=== PATIENT | female | born 1985 | race Caucasian/White ===

== ENCOUNTER 2017-06-30 08:47 | Emergency (ER) | payer OTHER, SELFPAY ==
[2017-06-30 08:48] VITALS: BP 119/81; PULSE 91; RESP 18; TEMP 36.7; O2SAT 100; BMI 28.3
--- NOTE | 2017-06-30 09:00 | EKG12_ITS ---
Test Reason : ABNORMAL LABS Blood Pressure : / mmHG Vent. Rate : 076 BPM Atrial Rate : 076 BPM P-R Int : 136 ms QRS Dur : 082 ms QT Int : 388 ms P-R-T Axes : 042 068 041 degrees QTc Int : 436 ms Sinus rhythm with marked sinus arrhythmia Otherwise normal ECG Confirmed by JOEY LOREDO, BON ([id number]), videotape editor JAIRO GOMEZ ([id number] on 07/02/2017 1:20:16 PM Referred By: Dayna Wolfe Confirmed By:BON COOK MD
--- NOTE | 2017-06-30 09:00 | RAD_ITS ---
STUDY: X-RAY CHEST REASON FOR EXAM: Female, 32 years old. Pain. Shortness of breath TECHNIQUE: PA and lateral views of the chest. COMPARISON: None. FINDINGS: The lungs are clear and expanded. There is no demonstrated pleural abnormality. Normal size heart. Normal mediastinum and mike. Normal visualized pulmonary arteries. Normal visualized aortic arch and descending thoracic aorta. There is a dextroscoliosis of the thoracic spine. Normal visualized ribs, clavicles, and shoulders. There is no demonstrated abnormality of the visualized soft tissue structures of the upper abdomen. RAD/Chest PA and Lateral IMPRESSION: Lungs are clear. Scoliosis. Electronically Signed: Quinn Scott MD at 10:06 EST , Service support ,
[2017-06-30] MEDS: Ondansetron 4 MG/2 ML Vial IV (09:12)
[2017-06-30 09:13] VITALS: BP 114/77; PULSE 85; RESP 14; O2SAT 99
[2017-06-30] MEDS: Ketorolac 30 MG/ML Syringe IV (09:13)
[2017-06-30 09:19] LABS: Absolute Lymphocyte Count 1.92 X10^3/ul (0.83-4.51); Absolute Neutrophil Count 4.8 X10^3/uL (2.0-7.7); Basophil# 0.04 X10^3/uL; Basophil% 0.5 % (0-1); Eosinophil# 0.18 X10^3/uL; Eosinophils% 2.4 % (0-5); Hematocrit 39.6 % (37-47); Hemoglobin 13.7 g/dl (12.0-15.0); Lymphocyte # 1.92 X10^3/ul (4.0); Lymphocyte % 25.8 % (19-41); Mean Corp Hgb Conc 34.6 g/gl (32-36); Mean Corpuscular Hgb 31.7 pg (27.0-32.0); Mean Corpuscular Volume 91.7 fL (81-99); Mean Platelet Vol. 10.4 fl (6.2-12.0); Monocyte# 0.54 X10^3/uL; Monocyte% 7.3 % (0-10); Neutrophil # 4.75 X10^3/uL (2.7-7.7); Neutrophil % 63.9 % (47-70); Platelet Count 252 K/mm3 (150-450); RBC Distribution Width SD 39.8 fl (35.1-43.9); Red Blood Count 4.32 M/mm3 (4.2-5.4); White Blood Count 7.4 K/mm3 (4.4-11.0)
[2017-06-30 09:23] LABS: POSITIVE COUNT NO; POSITIVE DIFFERENTIAL NO; POSITIVE MORPHOLOGY NO
[2017-06-30 09:36] LABS: Anion Gap 8 (5-15); BUN 16 mg/dL (7-18); BUN/Creat Ratio 13.8 RATIO (10-20); Chloride 106 mmol/L (98-107); Creatinine, Serum 1.16 mg/dL (0.55-1.02); EST Glomerular Filtration Rate 57 mL/min (>60); Est Glom Filt Rate - Afr Amer 69 mL/min (>60); Estimated Creatinine Clearance 56.53 ml/min; Glucose 81 mg/dL (74-106); Sodium Level 140 mmol/L (136-145)
[2017-06-30 09:49] LABS: D-Dimer Quantitative (DVT/PE) 0.41 FEU/ug/m (0.27-0.49)
--- NOTE | 2017-06-30 10:14 | ED.VISSUMM ---
- ER Visit Summary Date of Service: 06/30/17 Chief Complaint: [Chest pain and shortness of breath] History of Present Illness: The patient is a 32 F [presents to the emergency department with complaint of discomfort in her chest that started yesterday morning. States she woke up with the discomfort that is retrosternal. Patient describes it as a sharp to burning sensation. Patient states the discomfort is worse with breathing. Patient denies any trauma. This morning patient had nausea and dry heaves while at work and was brought to the emergency department for evaluation. Patient denies any fever although she states she subjectively felt hot and flushed last night. Patient denies any abdominal pain. She denies urinary symptoms. 2 of her young children at home with low-grade fevers, runny nose, and cough. Patient denies any trauma to her chest. She denies lifting or straining. Patient did have a uterine ablation recently. She denies recent travel or long period of immobilization.] Patient's pain is not worse with lying flat. Physical Examination: [HEENT-PERRLA, EOMI. Cranial nerves II through XII grossly intact. TMs clear. Mucous membranes moist. No adenopathy. Cardiovascular-regular rate and rhythm without murmur or ectopy Lungs-clear to auscultation, chest wall stable without crepitus or subcu emphysema. Unable to reproduce patient's chest pain with palpation. Abdomen-normoactive bowel sounds, soft, nontender, no rebound or rigidity, no peritoneal signs. Extremities-intact ?4, normal range of motion, normal pulses, atraumatic] Test Results: [EKG obtained showed sinus rhythm with a ventricular rate of 76 bpm with no acute ST segment changes. Patient had occasional P ACs]. CBC with differential was normal. Chemistries unremarkable. Troponin was less than 0.02. Influenza was negative. D-dimer was 0.41. Chest x-ray was normal. Emergency Department Course and Treatment: [Patient was given Zofran and Toradol. Patient's nausea is improved.] Treatment Plan: [Advised use ibuprofen for discomfort.] Disposition: [Discharged to home in stable condition] Impression: [Atypical chest pain] This note was generated with [employer] dictation software. It may contain incorrect words, spelling, and punctuation that were not noted in review of the chart prior to signing ED Disposition - Plan for ED Patient: Chief Complaint: Abn Labs Referrals: Ralf Martins MD [Primary Care Provider] -
--- NOTE | 2017-06-30 10:17 | ED.DCSUM_ITS ---
- ER Visit Summary Date of Service: 06/30/17 Chief Complaint: [Chest pain and shortness of breath] History of Present Illness: The patient is a 32 F [presents to the emergency department with complaint of discomfort in her chest that started yesterday morning. States she woke up with the discomfort that is retrosternal. Patient describes it as a sharp to burning sensation. Patient states the discomfort is worse with breathing. Patient denies any trauma. This morning patient had nausea and dry heaves while at work and was brought to the emergency department for evaluation. Patient denies any fever although she states she subjectively felt hot and flushed last night. Patient denies any abdominal pain. She denies urinary symptoms. 2 of her young children at home with low-grade fevers , runny nose, and cough. Patient denies any trauma to her chest. She denies lifting or straining. Patient did have a uterine ablation recently. She denies recent travel or long period of immobilization.] Patient's pain is not worse with lying flat. Physical Examination: [HEENT-PERRLA, EOMI. Cranial nerves II through XII grossly intact. TMs clear. Mucous membranes moist. No adenopathy. Cardiovascular-regular rate and rhythm without murmur or ectopy Lungs-clear to auscultation, chest wall stable without crepitus or subcu emphysema. Unable to reproduce patient's chest pain with palpation. Abdomen-normoactive bowel sounds, soft, nontender, no rebound or rigidity, no peritoneal signs. Extremities-intact ?4, normal range of motion, normal pulses, atraumatic] Test Results: [EKG obtained showed sinus rhythm with a ventricular rate of 76 bpm with no acute ST segment changes. Patient had occasional P ACs]. CBC with differential was normal. Chemistries unremarkable. Troponin was less than 0.02. Influenza was negative. D-dimer was 0.41. Chest x-ray was normal. Emergency Department Course and Treatment: [Patient was given Zofran and Toradol. Patient's nausea is improved.] Treatment Plan: [Advised use ibuprofen for discomfort.] Disposition: [Discharged to home in stable condition] Impression: [Atypical chest pain] This note was generated with [employer] dictation software. It may contain incorrect words, spelling, and punctuation that were not noted in review of the chart prior to signing ED Disposition - Plan for ED Patient: Chief Complaint: Abn Labs Referrals: Ralf Martins MD [Primary Care Provider] -
--- NOTE | 2017-06-30 10:17 | ED.DEP ---
ED Disposition - Plan for ED Patient: Chief Complaint: Abn Labs Instructions: ED Chest Pain Atypical Unkn Cause Referrals: Ralf Martins MD [Primary Care Provider] - 3-5 Days
[2017-06-30 10:27] VITALS: BP 102/79; PULSE 81; RESP 16; O2SAT 97
== END 2017-06-30 10:28 | disposition home or self-care (01) ==
LOC: ED 09:56
PROVIDERS: Emergency Provider Emergency Medicine; Family Provider Family Medicine; PCP Family Medicine
DX: R07.89 Other chest pain (principal); R06.02 Shortness of breath; R11.0 Nausea
CPT/HCPCS: 71046; 80048; 84484; 85025; 85379; 87804; 93005; 96374; 96375; 99284; J7030; J2405